=== PATIENT | male | born 1970 | race American Indian/Alaskan Native ===

== ENCOUNTER 2022-03-16 09:34 | Emergency (ER) | payer BC, OTHER ==
[2022-03-16] MEDS ORDERED: SODIUM CHLORIDE 0.9% 1000 ML 1,000 ML IV ONE (09:53)
--- NOTE | 2022-03-16 10:09 | Consultation ---
History of Present Illness History of present illness: [facility] Consult Note # Demographics Consult Type: Acute Stroke Level 2 (4.5-24 hrs) Patient Location: Emergency Room First Name: Mejia Last Name: Albert Soria Date of : 1970 Age: 51 Gender: Male Facility: [facility] Time of Initial Page ( Time): 03/16/2022, 09:38 Time of Return Call ( Time): 03/16/2022, 09:53 # HPI Chief Complaint: facial droop History: 51M presents with facial droop. Developed numbness and tearing in the right face last night. Drooping and drooling noticed this morning. # Scores Time of exam and NIHSS (): 03/16/2022, 09:55 Level of Consciousness 1a: [0] = Alert; keenly responsive LOC Questions 1b: [0] = Answers both questions correctly LOC Commands 1c: [0] = Performs both tasks correctly Best Gaze 2: [0] = Normal Visual 3: [0] = No visual loss Facial Palsy 4: [3] = Complete paralysis Motor Arm Left 5a: [0] = No drift Motor Arm Right 5b: [0] = No drift Motor Leg Left 6a: [0] = No drift Motor Leg Right 6b: [0] = No drift Limb Ataxia 7: [0] = Absent Sensory 8: [0] = Normal Best Language 9: [0] = No aphasia Dysarthria 10: [0] = Normal Extinction and Inattention 11: [0] = No abnormality NIHSS Total: 3 # Data Time Head CT personally read by me (): 03/16/2022, 10:[address]: no bleed preliminarily reviewed by me, please refer to radiology read for official reading # Assessment Impression: Foristell Palsy # Plan Thrombolytic/Intervention: NOT IV Thrombolysis or IA Intervention candidate Thrombolytic/Intraarterial Exclusion: IV thrombolytic and IA intervention considered but not recommended as this patient's symptoms are not clinically consistent with an assumed diagnosis of stroke Medication: prednisone 1mg/kg x7 days valacyclovir 1g q8 x7 days Lubricating eye drops/ointment Additional Recommendations: Eye patch/tape to limit corneal exposure risk from incomplete eye lid closure Disposition: discharge # Logistics Telemedicine: Interactive 2 way audio and visual telecommunication technology was utilized during this visit Electronically signed at 03/16/2022 10:09 (Eastern Time) by Nato Silverman MD Medications and Allergies Allergies Allergy/AdvReac Type Severity Reaction Status Date / Time No Known Allergies Allergy Unverified 07/26/15 09:50 Active Meds: Active Medications Sodium Chloride (Nacl 0.9% 1000 Ml) 1,000 mls @ 999 mls/hr IV BOLUS ONE Stop: 03/16/22 10:53
--- NOTE | 2022-03-16 10:20 | XRay Report ---
. XR chest 1V ap INDICATION / CLINICAL INFORMATION: Dyspnea. COMPARISON: None available. FINDINGS: SUPPORT DEVICES: None. HEART /PULMONARY VASCULATURE: No significant abnormality. LUNGS / PLEURA: Lungs are hyperexpanded but appear clear consolidation. There is flattening of the di aphragm and blunting of the costophrenic sulci, likely chronic. No pneumothorax. ADDITIONAL FINDINGS: No significant additional findings. IMPRESSION: COPD. No evidence of acute process. Signer Name: Johnny Villarreal MD Signed: 03/16/2022 10:16 AM Workstation Name: [id number]
--- NOTE | 2022-03-16 10:24 | Cat Scan Report ---
CT HEAD WITHOUT CONTRAST INDICATION / CLINICAL INFORMATION: RT SIDED WEAKNESS. TECHNIQUE: All CT scans at this location are performed using CT dose reduction for ALARA by means of automated exposure control. COMPARISON: None available. FINDINGS: BRAIN PARENCHYMA: No acute intracranial hemorrhage. No evidence of recent infarct. No mass effect or midline shift. VENTRICULAR SYSTEM/EXTRA-AXIAL SPACES: Ventricles are normal for age. No extra-axial fluid collection . ORBITS: Normal as visualized. SKELETAL SYSTEM/SOFT TISSUES: Normal bones and soft tissues. PARANASAL SINUSES/MASTOID AIR CELLS: No significant abnormality. ADDITIONAL FINDINGS: None. IMPRESSION: No acute intracranial abnormality by CT. Signer Name: Johnny Villarreal MD Signed: 03/16/2022 10:19 AM Workstation Name: [id number]
[2022-03-16 10:34] LABS: Basophils % (Auto) 0.7 % (0.0-1.8); Eosinophils # (Auto) 0.2 K/mm3 (0.0-0.4); Eosinophils % (Auto) 3.5 % (0.0-4.3); Hematocrit 47.3 % (35.5-45.6); Hemoglobin 16.3 gm/dl (11.8-15.2); Lymphocytes # (Auto) 1.6 K/mm3 (1.2-5.4); Lymphocytes % (Auto) 32.7 % (13.4-35.0); Mean Corpuscular HGB Conc 35 % (32-34); Mean Corpuscular Volume 94 fl (84-94); Monocytes # (Auto) 0.5 K/mm3 (0.0-0.8); Monocytes % (Auto) 9.3 % (0.0-7.3); Platelet Count 121 K/mm3 (140-440); Red Blood Count 5.03 M/mm3 (3.65-5.03)
[2022-03-16 10:45] LABS: INR 0.91 (0.87-1.13)
[2022-03-16 10:46] LABS: Partial Thromboplastin Time 34.3 Sec. (24.2-36.6); Thrombin Time 17.2 Sec. (15.1-19.6)
[2022-03-16 10:58] LABS: Creatine Kinase MB 2.9 ng/mL (0.0-4.0)
[2022-03-16 10:58] LABS: Alanine Aminotransferase 38 units/L (7-56); Albumin 4.4 g/dL (3.9-5); BUN/Creatinine Ratio 10; Blood Urea Nitrogen 13 mg/dL (9-20); Calcium 9.5 mg/dL (8.4-10.2); Hemolysis Index 12
--- NOTE | 2022-03-16 11:03 | Emergency Department Report ---
ED General Adult HPI - General Chief complaint: Neuro Symptoms/Deficit Stated complaint: POSSIBLE STROKE Time Seen by Provider: 03/16/22 09:53 Source: patient Mode of arrival: Ambulatory Limitations: No Limitations - History of Present Illness Initial comments: left side facial droop , started around 9 pm last night no weakness no tingling numbness -: Sudden, hour(s) (12) Location: face, mouth, eyes Radiation: non-radiation Consistency: constant Improves with: none Worsens with: none Associated Symptoms: denies: denies other symptoms, confusion, chest pain, cough - Related Data Previous Rx's Medication Instructions Recorded Last Taken Type Carboxymethylcellulos/Glycerin 15 ml OP 4XD #1 drops 03/16/22 Unknown Rx [Lubricant 0.5-0.9% Eye Drops] Eye Patch 1 each MC DAILY #1 each 03/16/22 Unknown Rx Valacyclovir HCl [Valtrex] 1,000 mg PO TID #15 03/16/22 Unknown Rx predniSONE [Deltasone] 50 mg PO QDAY #7 tab 03/16/22 Unknown Rx Allergies Allergy/AdvReac Type Severity Reaction Status Date / Time No Known Allergies Allergy Unverified 07/26/15 09:50 ED Review of Systems ROS: Stated complaint: POSSIBLE STROKE Other details as noted in HPI Constitutional: denies: chills, fever Eyes: denies: eye pain, eye discharge, vision change ENT: denies: ear pain, throat pain Respiratory: denies: cough, shortness of breath, wheezing Cardiovascular: denies: chest pain, palpitations Endocrine: no symptoms reported Gastrointestinal: denies: abdominal pain, nausea, diarrhea Genitourinary: denies: urgency, dysuria Musculoskeletal: denies: back pain, joint swelling, arthralgia Skin: denies: rash, lesions Neurological: denies: headache, weakness, paresthesias Psychiatric: denies: anxiety, depression Hematological/Lymphatic: denies: easy bleeding, easy bruising ED Past Medical Hx - Past Medical History Previous Medical History?: Yes Hx Heart Attack/AMI: Yes Hx COPD: Yes - Surgical History Past Surgical History?: Yes Hx Coronary Stent: Yes - Social History Smoking Status: Never Smoker - Medications Home Medications: Home Medications Medication Instructions Recorded Confirmed Last Taken Type Carboxymethylcellulos/Glycerin 15 ml OP 4XD #1 drops 03/16/22 Unknown Rx [Lubricant 0.5-0.9% Eye Drops] Eye Patch 1 each MC DAILY #1 each 03/16/22 Unknown Rx Valacyclovir HCl [Valtrex] 1,000 mg PO TID #15 03/16/22 Unknown Rx predniSONE [Deltasone] 50 mg PO QDAY #7 tab 03/16/22 Unknown Rx ED Physical Exam - General Limitations: No Limitations General appearance: alert, in no apparent distress, other (left facial droop ) - Head Head exam: Present: atraumatic, normocephalic - Eye Eye exam: Present: normal appearance - ENT ENT exam: Present: mucous membranes moist - Neck Neck exam: Present: normal inspection - Respiratory Respiratory exam: Present: normal lung sounds bilaterally. Absent: respiratory distress - Cardiovascular Cardiovascular Exam: Present: regular rate, normal rhythm. Absent: systolic murmur, diastolic murmur, rubs, gallop - GI/Abdominal GI/Abdominal exam: Present: soft, normal bowel sounds - Rectal Rectal exam: Present: deferred - Extremities Exam Extremities exam: Present: normal inspection - Back Exam Back exam: Present: normal inspection - Neurological Exam Neurological exam: Present: alert, oriented X3 - Expanded Neurological Exam Expanded Patient oriented to: Present: person, place, time Speech: Present: fluid speech Cranial nerves: Facial Palsy with Forehead Movement: Abnormal Right Best Eye Response (Stuart): (4) open spontaneously Best Motor Response (Ricarda): (6) obeys commands Best Verbal Response (Ricarda): (5) oriented Stuart Total: 15 - Psychiatric Psychiatric exam: Present: normal affect, normal mood - Skin Skin exam: Present: warm, dry, intact, normal color. Absent: rash ED Course Vital Signs 03/16/22 03/16/22 10:30 10:45 Temperature 98.9 F Pulse Rate 64 Respiratory 18 18 Rate Blood Pressure 129/79 O2 Sat by Pulse 99 100 Oximetry ED Medical Decision Making - Lab Data Result diagrams: 03/16/22 10:06 - EKG Data -: EKG Interpreted by Me EKG shows normal: sinus rhythm Rate: normal - Radiology Data Radiology results: report reviewed, image reviewed - Medical Decision Making work up negative fro stroke, symtpoms of bells palsy , neurologist assessed pat ient Critical care attestation.: If time is entered above; I have spent that time in minutes in the direct care of this critically ill patient, excluding procedure time. ED Disposition Clinical Impression: Whitehead's palsy Disposition: 01 HOME / SELF CARE / HOMELESS Is pt being admited?: No Does the pt Need Aspirin: No Condition: Stable Instructions: Whitehead Palsy, Adult Referrals: PRIMARY CARE, [Primary Care Provider] - 3-5 Days
[2022-03-16 12:55] VITALS: BP 118/65
== END 2022-03-16 12:54 | disposition home or self-care (01) ==
LOC: ED 09:34
DX: G51.0 Bell's palsy (principal); J44.9 Chronic obstructive pulmonary disease, unspecified; Z98.890 Other specified postprocedural states
CPT/HCPCS: 36415; 70450; 71045; 80053; 82550; 82553; 84484; 85025; 85610; 85670; 85730; 93005; 96360; 99284